=== PATIENT | female | born 1950 | race Caucasian/White ===

== ENCOUNTER 2018-09-28 10:48 | Inpatient (IN) | payer MEDICARE ==
[~2018-09-28] VITALS: Ht 162.6 cm; Wt 43.8 kg
--- OUTSIDE RECORDS SUMMARY | 2018-09-28 10:51 | XMS REPORT ---
Author Author [facility] Address Unknown Phone Unavailable Care Team Providers Care Head Sampler Name Role Phone Unavailable Unavailable Payers Payer Name Policy Type Policy Number Effective Date Expiration Date Problems This patient has no known problems. Allergies, Adverse Reactions, Alerts Allergy Name Allergy Type Status Severity Reaction(s) Onset Date Inactive Date Treating Clinician Comments No Known Allergies DA Active U 2018-01-01 00:00:00 Medications This patient has no known medications.
[2018-09-28] MEDS ORDERED: PANTOPRAZOLE 40 MG 10ML VIAL IV STA (11:03)
[2018-09-28] MEDS ORDERED: ALBUTEROL SULF 0.083% NEB SOLN 3 ML NEB NEB STA (11:03)
[2018-09-28] MEDS ORDERED: SODIUM CHLORIDE 0.9% 1000ML 1,000 ML IV STA (11:03)
[2018-09-28] MEDS ORDERED: IPRATROPIUM BROMIDE 0.02% 2.5 ML NEB NEB ONE (11:15)
--- NOTE | 2018-09-28 12:05 | Diagnostic Imaging Report ---
EXAMINATION: CHEST 2 VIEWS INDICATION: Cough. Shortness of breath. COMPARISON: None FINDINGS: TUBES and LINES: Right anterior chest port catheter. LUNGS: Lungs are well hyperinflated with chronic appearing change. Perihilar peribronchial hazy opacity could be due to bronchitis. There is no evidence of pneumonia or pulmonary edema. PLEURA: No pleural effusion or pneumothorax. HEART AND MEDIASTINUM: The cardiomediastinal silhouette is unremarkable. BONES AND SOFT TISSUES: No acute osseous lesion. Soft tissues are unremarkable. UPPER ABDOMEN: No free air under the diaphragm. IMPRESSION: Findings which could be due to bronchitis. Signed by: Dr. Demian Arnett M.D. on 09/28/2018 12:02 PM
[2018-09-28 12:47] LABS: BASOPHILS % 0.3 % (0.0-1.0); EOSINOPHILS % 0.3 % (0.0-6.0); HEMATOCRIT 42.4 % (34.2-44.1); HEMOGLOBIN 14.3 g/dL (12.0-16.0); LYMPHOCYTES # (AUTO) 0.7 (1.0-3.2); LYMPHOCYTES % 7.6 % (18.0-39.1); MEAN CORPUSCULAR HEMOGLOBIN 29.8 pg (28-32); MEAN CORPUSCULAR HGB CONC 33.7 g/dL (31-35); MEAN CORPUSCULAR VOLUME 88.3 fL (81-99); MONOCYTES # (AUTO) 0.7 (0.2-0.8); MONOCYTES % 8.1 % (4.4-11.3); NEUTROPHILS # (AUTO) 7.4 (2.1-6.9); NEUTROPHILS % 83.4 % (38.7-80.0); PLATELET COUNT 283 x10e3/uL (140-360); RED CELL DISTRIBUTION WIDTH 13.2 % (11.7-14.4)
[2018-09-28 12:47] LABS: BILIRUBIN,URINE 2+ (NEGATIVE); CLARITY,URINE SL CLOUDY (CLEAR); COLOR,URINE YELLOW (YELLOW); KETONES,URINE 1+ (NEGATIVE); LEUKOCYTE ESTERASE ,URINE TRACE (NEGATIVE); NITRITE,URINE NEGATIVE (NEGATIVE); PROTEIN,URINE DIPSTICK 2+ (NEGATIVE); URINE UROBILINOGEN 0.2 mg/dL (0.2 - 1)
[2018-09-28 12:57] LABS: PROTHROMBIN TIME 14.1 seconds (11.9-14.5)
[2018-09-28 12:58] LABS: PARTIAL THROMBOPLASTIN TIME 30.7 seconds (23.8-35.5)
[2018-09-28 13:12] LABS: ALBUMIN 3.9 g/dL (3.5-5.0); ALBUMIN/GLOBULIN RATIO 1.1 (0.8-2.0); ANION GAP 22.3 mmol/L (8-16); CALCIUM 10.6 mg/dL (8.4-10.2); CREATININE, SERUM 1.01 mg/dL (0.57-1.11); MAGNESIUM 2.6 MG/DL (1.3-2.1)
[2018-09-28 13:18] LABS: POTASSIUM 2.3 mmol/L (3.5-5.1)
[2018-09-28 13:18] LABS: WBC,URINE (MAN) >50 /HPF (0-5)
[2018-09-28 13:19] LABS: BACTERIA,URINE MANY /HPF; EPITHELIAL CELLS,URINE MODERATE /LPF
[2018-09-28] MEDS ORDERED: KCL 20MEQ/.9 SOD CHL 1,000 ML IV ONE (13:30)
[2018-09-28 13:45] LABS: CREATINE KINASE MB 1.9 ng/mL (0-5.0)
[2018-09-28] MEDS ORDERED: MORPHINE SULFATE 2 MG/ML SYR IV PRN (13:45)
[2018-09-28] MEDS: D5NS/KCL 20MEQ 1,000 ML IV SCH ×2 (13:45→23:59)
[2018-09-28] MEDS ORDERED: ONDANSETRON HCL INJ 2 MG/ML VIAL IV PRN (13:45)
[2018-09-28] MEDS ORDERED: POTASSIUM CHLORIDE 20MEQ/15ML UDC PO ONE (13:45)
[2018-09-28] MEDS ORDERED: MORPHINE SULFATE INJ 4 MG/ML INJ IV PRN (14:00)
[2018-09-28] MEDS: CEFTRIAXONE SOD 1 GM VIAL IV SCH ×2 (14:47→16:23)
[2018-09-28] MEDS ORDERED: PAMIDRONATE DISODIUM 90 MG in SODIUM CHLORIDE 0.9% 1000ML 1,000 ML IV ONE (15:00)
[2018-09-28 15:31] LABS: ANION GAP 18.4 mmol/L (8-16); BLOOD UREA NITROGEN 20 mg/dL (7-26); BUN/CREATININE RATIO 22 (6-25); CALCIUM 9.4 mg/dL (8.4-10.2); CARBON DIOXIDE 25 mmol/L (22-29); CHLORIDE 96 mmol/L (98-107); CREATININE, SERUM 0.92 mg/dL (0.57-1.11); EST GLOMERULAR FILTRATION RATE > 60 ML/MIN (60-); GLUCOSE 88 mg/dL (74-118); SODIUM 137 mmol/L (136-145)
[2018-09-28 15:38] LABS: POTASSIUM 2.4 mmol/L (3.5-5.1)
[2018-09-28] MEDS ORDERED: POTASSIUM CHLORIDE 20MEQ/100ML 100 ML IV ONE ×2 (16:30→18:30)
[2018-09-28 17:13] VITALS: BP 139/75
[2018-09-28 17:23] VITALS: BP 139/75
[2018-09-28 17:26] VITALS: BP 121/60
--- NOTE | 2018-09-28 19:47 | Consultation ---
DATE OF CONSULTATION: September 28, 2018 GASTROENTEROLOGY CONSULTATION REFERRING PHYSICIAN: Dr. Adilene Ortiz. REASON FOR CONSULTATION: Dysphagia. HISTORY OF PRESENT ILLNESS: Ms. Gleason is a very pleasant 67-year-old woman with history of head and neck cancer with recurrence. She has had as a barium swallow test in the past and was told she needed to be on pureed diet, which she did not particularly like. She was able to tolerate that until recently when she developed significant throat pain which keeps her from tolerating p.o. Over the weekend she had very little p.o. and was very weak and felt very dry and hydrated. She is noted to have significant hypokalemia as well as hypercalcemia here. She had a feeding tube several years ago but did not actually have to use it. She has had some coughing with p.o. intake with the fluids coming back up on her. She has no abdominal pain. She has had significant weight loss. PAST MEDICAL HISTORY: 1. Throat cancer. 2. COPD. MEDICATIONS AND ALLERGIES: REVIEWED. PLEASE SEE MAR, medication reconciliation form. SOCIAL HISTORY: Positive for tobacco. No alcohol, no illicit substances. FAMILY HISTORY: Reviewed, noncontributory. REVIEW OF SYSTEMS: Twelve-system review is positive for that mentioned in history of present illness, otherwise unremarkable. PHYSICAL EXAMINATION: GENERAL: She is thin, underweight, alert, oriented, no acute distress. HEENT: Pupils equal and reactive to light. NECK: Supple. LUNGS: She has rhonchi, right greater than left. CARDIAC: S1 and S2. ABDOMEN: Soft, nontender, nondistended. Normal bowel sounds. EXTREMITIES: No clubbing, cyanosis, edema. PSYCH: Calm, cooperative. NEUROLOGIC: Alert, oriented. HEME-ONC: No significant ecchymosis. The electronic health record was reviewed for laboratory and radiologic studies as well as history. ASSESSMENT: 1. Dysphagia. 2. Odynophagia. 3. Adult failure to thrive and significant to severe malnutrition. 4. Hypokalemia. 5. Hypercalcemia. 6. Dehydration. PLAN: At the current time she would benefit from a feeding tube placement, and she is interested in this. Procedure as well as risks, benefits, alternatives and the tube itself are discussed. We will have Nutrition consult for tube feed recommendations. Until she has a speech study that shows she is safe for p.o. intake, I would have her stay n.p.o. I did discuss with her that having a feeding tube does not keep you from eating if you are able to eat by mouth. We will plan on EGD tomorrow pending OR time and potassium. Thank you very much for asking me to see Ms. Gleason. Any questions or concerns, please do not hesitate to contact me. Will follow with you. Job#: [id number] EV
[2018-09-28 20:38] VITALS: BP 115/65
[2018-09-28] MEDS ORDERED: PAMIDRONATE DISODIUM 30 MG/VIAL IV SCH (21:00)
[2018-09-28 21:42] LABS: CREATINE KINASE MB 2.1 ng/mL (0-5.0)
[2018-09-28 22:45] VITALS: BP 115/65
[2018-09-29] VITALS (7 sets, daily range): BP systolic 117–157; BP diastolic 66–86
[2018-09-29] MEDS: D5NS/KCL 20MEQ 1,000 ML IV SCH ×4 (00:01→23:05)
[2018-09-29] MEDS: POTASSIUM CHLORIDE 20MEQ/100ML 100 ML IV ONE ×2 (01:26→05:44)
[2018-09-29] MEDS: CEFEPIME HCL 1 GM VIAL IV SCH ×3 (01:26→18:39)
[2018-09-29] MEDS: POTASSIUM CHLORIDE 20MEQ/100ML 100 ML IV SCH ×6 (01:26→23:35)
[2018-09-29 06:24] LABS: ALANINE AMINOTRANSFERASE 8 IU/L (0-55); ALBUMIN 2.8 g/dL (3.5-5.0); ALKALINE PHOSPHATASE 68 IU/L (40-150); ANION GAP 13.8 mmol/L (8-16); BLOOD UREA NITROGEN 12 mg/dL (7-26); BUN/CREATININE RATIO 16 (6-25); CALCIUM 8.3 mg/dL (8.4-10.2); CARBON DIOXIDE 23 mmol/L (22-29); CHLORIDE 101 mmol/L (98-107); CREATININE, SERUM 0.75 mg/dL (0.57-1.11); EST GLOMERULAR FILTRATION RATE > 60 ML/MIN (60-); GLUCOSE 145 mg/dL (74-118); SODIUM 135 mmol/L (136-145)
[2018-09-29 06:27] LABS: POTASSIUM 2.8 mmol/L (3.5-5.1)
[2018-09-29 06:48] LABS: CREATINE KINASE MB 2.2 ng/mL (0-5.0)
[2018-09-29 07:05] LABS: BASOPHILS % 0.3 % (0.0-1.0); EOSINOPHILS # (AUTO) 0.1 (0.0-0.4); EOSINOPHILS % 0.8 % (0.0-6.0); LYMPHOCYTES # (AUTO) 0.7 (1.0-3.2); LYMPHOCYTES % 9.8 % (18.0-39.1); MEAN CORPUSCULAR HEMOGLOBIN 30.1 pg (28-32); MEAN CORPUSCULAR HGB CONC 34.2 g/dL (31-35); MONOCYTES # (AUTO) 0.7 (0.2-0.8); MONOCYTES % 9.5 % (4.4-11.3); NEUTROPHILS % 79.1 % (38.7-80.0); PLATELET COUNT 217 x10e3/uL (140-360); RED BLOOD COUNT 3.75 x10e6/uL (3.6-5.1); RED CELL DISTRIBUTION WIDTH 13.5 % (11.7-14.4)
[2018-09-29 07:16] LABS: HEMOGLOBIN 11.3 g/dL (12.0-16.0)
[2018-09-29] MEDS ORDERED: POTASSIUM CHLORIDE 20MEQ/100ML 100 ML IV ONE ×4 (13:30→19:30)
[2018-09-29] MEDS ORDERED: CEFAZOLIN SOD 1 GM/D5W 50ML 50 ML IV ONE (14:00)
[2018-09-29 14:54] LABS: ANION GAP 15.3 mmol/L (8-16); POTASSIUM 3.3 mmol/L (3.5-5.1)
[2018-09-29] MEDS ORDERED: MAGNESIUM SULFATE 2GM/50ML 100 ML IV ONE (15:45)
[2018-09-29] MEDS ORDERED: SODIUM CHLORIDE 0.9% 500ML 500 ML ONE ×2 (16:01→19:32)
[2018-09-29] MEDS ORDERED: CEFAZOLIN SOD 1 GM VIAL ONE (17:04)
[2018-09-29] MEDS ORDERED: PROPOFOL IV EMULSION 10 MG/ML 20 ML VIAL ONE (17:04)
[2018-09-29] MEDS ORDERED: FENTANYL CITRATE/PF 100MCG/2 ML INJ ONE (17:06)
[2018-09-29] MEDS ORDERED: MIDAZOLAM HCL 2 MG/2 ML VIAL ONE (17:06)
[2018-09-29] MEDS ORDERED: MAGNESIUM SULF 1GRAM/DEXTROSE 100 ML IV ONE (17:30)
[2018-09-29] MEDS: BALSAM PERU/CASTOR OIL 60 GM OINT...G. TP SCH (18:29)
[2018-09-29] MEDS: MORPHINE SULFATE 2 MG/ML SYR IV PRN (19:45)
[2018-09-30] VITALS (8 sets, daily range): BP systolic 83–101; BP diastolic 51–62
[2018-09-30] MEDS: MORPHINE SULFATE 2 MG/ML SYR IV PRN (03:20)
[2018-09-30 05:34] LABS: ANION GAP 11.3 mmol/L (8-16); MAGNESIUM 2.3 MG/DL (1.3-2.1); POTASSIUM 3.3 mmol/L (3.5-5.1)
[2018-09-30] MEDS: D5NS/KCL 20MEQ 1,000 ML IV SCH ×3 (05:45→23:56)
[2018-09-30] MEDS: CEFEPIME HCL 1 GM VIAL IV SCH ×2 (05:59→17:01)
[2018-09-30] MEDS ORDERED: POTASSIUM CHLORIDE 20MEQ/100ML 200 ML IV ONE (09:00)
[2018-09-30] MEDS: BALSAM PERU/CASTOR OIL 60 GM OINT...G. TP SCH ×2 (09:38→17:00)
[2018-09-30] MEDS: ALBUTEROL SULF 0.083% NEB SOLN 3 ML NEB NEB PRN (13:00)
[2018-10-01] VITALS: BP 95/51
[2018-10-01] MEDS: CEFEPIME HCL 1 GM VIAL IV SCH ×2 (05:27→18:10)
[2018-10-01 05:31] VITALS: BP 95/51
[2018-10-01 05:38] LABS: MAGNESIUM 1.5 MG/DL (1.3-2.1)
[2018-10-01] MEDS: D5NS/KCL 20MEQ 1,000 ML IV SCH ×3 (05:45→21:45)
[2018-10-01 08:00] VITALS: BP 104/55
[2018-10-01] MEDS: BALSAM PERU/CASTOR OIL 60 GM OINT...G. TP SCH ×2 (09:00→17:00)
[2018-10-01] MEDS ORDERED: MAGNESIUM SULFATE 2GM/50ML 50 ML IV ONE (12:00)
[2018-10-01] MEDS ORDERED: POTASSIUM CHLORIDE 20MEQ/100ML 300 ML IV ONE (12:00)
[2018-10-01] MEDS ORDERED: MAGNESIUM SULFATE IV SCH (13:00)
[2018-10-01] MEDS ORDERED: SODIUM CHLORIDE 0.9% IV SCH (13:00)
[2018-10-01] MEDS ORDERED: POTASSIUM CHLORIDE 60 MEQ in SODIUM CHLORIDE 0.9% 1000ML 1,000 ML IV SCH (13:00)
[2018-10-01] MEDS: SPIRONOLACTONE 25 MG TAB PEG SCH (13:51)
[2018-10-01 16:00] VITALS: BP 97/55
[2018-10-01] MEDS: MORPHINE SULFATE 2 MG/ML SYR IV PRN (18:50)
[2018-10-01] MEDS: IPRATROPIUM BROMIDE 0.02% 2.5 ML NEB NEB PRN (19:50)
[2018-10-01] MEDS: ALBUTEROL SULF 0.083% NEB SOLN 3 ML NEB NEB PRN (19:50)
[2018-10-01 20:09] VITALS: BP 80/50
[2018-10-01 20:10] VITALS: BP 80/50
[2018-10-02] VITALS: BP 111/58
[2018-10-02 04:00] VITALS: BP 108/58
[2018-10-02] MEDS: CEFEPIME HCL 1 GM VIAL IV SCH ×2 (06:27→17:45)
[2018-10-02] MEDS: ALBUTEROL SULF 0.083% NEB SOLN 3 ML NEB NEB PRN (08:44)
[2018-10-02] MEDS: IPRATROPIUM BROMIDE 0.02% 2.5 ML NEB NEB PRN (08:45)
[2018-10-02] MEDS ORDERED: SPIRONOLACTONE 25 MG TAB PEG SCH (09:00)
[2018-10-02] MEDS: BALSAM PERU/CASTOR OIL 60 GM OINT...G. TP SCH ×2 (09:00→17:45)
[2018-10-02] MEDS: SPIRONOLACTONE 25 MG TAB PEG SCH (09:00)
[2018-10-02 09:02] VITALS: BP 103/65
[2018-10-02] MEDS: D5NS/KCL 20MEQ 1,000 ML IV SCH ×3 (10:14→21:45)
[2018-10-02 10:23] LABS: ANION GAP 12.3 mmol/L (8-16); POTASSIUM 3.3 mmol/L (3.5-5.1)
[2018-10-02 12:00] VITALS: BP 90/53
[2018-10-02 17:03] VITALS: BP 95/52
[2018-10-02 21:00] VITALS: BP 95/52
[2018-10-03 00:10] VITALS: BP 105/58
[2018-10-03] MEDS: D5NS/KCL 20MEQ 1,000 ML IV SCH ×4 (01:45→21:20)
[2018-10-03] MEDS: CEFEPIME HCL 1 GM VIAL IV SCH ×2 (05:20→18:39)
[2018-10-03 08:26] VITALS: BP 128/73
[2018-10-03] MEDS: SPIRONOLACTONE 25 MG TAB PEG SCH (09:00)
[2018-10-03] MEDS: BALSAM PERU/CASTOR OIL 60 GM OINT...G. TP SCH ×2 (09:00→17:06)
[2018-10-03 11:59] VITALS: BP 108/70
[2018-10-03 12:23] VITALS: BP 108/70
[2018-10-03] MEDS ORDERED: POTASSIUM CHLORIDE 20MEQ/15ML UDC PEG ONE (15:25)
[2018-10-03 15:43] VITALS: BP 105/61
[2018-10-03 20:00] VITALS: BP 107/65
[2018-10-04] VITALS (8 sets, daily range): BP systolic 103–117; BP diastolic 55–67
[2018-10-04] MEDS: METRONIDAZOLE 500MG/NS 100ML 100 ML IV SCH ×4 (01:10→21:49)
[2018-10-04] MEDS ORDERED: VANCOMYCIN 250MG/5ML ORAL SOLN PEG STA (01:11)
[2018-10-04] MEDS: MORPHINE SULFATE 2 MG/ML SYR IV PRN ×3 (01:25→23:28)
[2018-10-04] MEDS: D5NS/KCL 20MEQ 1,000 ML IV SCH ×3 (04:10→21:50)
[2018-10-04] MEDS: VANCOMYCIN 250MG/5ML ORAL SOLN PEG SCH ×3 (05:00→17:31)
[2018-10-04] MEDS: CEFEPIME HCL 1 GM VIAL IV SCH ×2 (05:00→17:31)
[2018-10-04] MEDS: BALSAM PERU/CASTOR OIL 60 GM OINT...G. TP SCH ×2 (09:39→15:59)
[2018-10-04] MEDS: SPIRONOLACTONE 25 MG TAB PEG SCH (11:00)
[2018-10-05] MEDS: VANCOMYCIN 250MG/5ML ORAL SOLN PEG SCH ×4 (00:08→15:55)
[2018-10-05 00:36] VITALS: BP 117/65
[2018-10-05 05:02] LABS: ANION GAP 11.9 mmol/L (8-16); BLOOD UREA NITROGEN < 5 mg/dL (7-26); CALCIUM 7.3 mg/dL (8.4-10.2); CARBON DIOXIDE 22 mmol/L (22-29); CHLORIDE 102 mmol/L (98-107); EST GLOMERULAR FILTRATION RATE > 60 ML/MIN (60-); GLUCOSE 109 mg/dL (74-118); POTASSIUM 3.9 mmol/L (3.5-5.1); SODIUM 132 mmol/L (136-145)
[2018-10-05 05:20] LABS: BUN/CREATININE RATIO 10 (6-25)
[2018-10-05] MEDS: D5NS/KCL 20MEQ 1,000 ML IV SCH ×2 (05:24→13:45)
[2018-10-05 05:38] VITALS: BP 110/58
[2018-10-05] MEDS: METRONIDAZOLE 500MG/NS 100ML 100 ML IV SCH ×2 (05:46→14:00)
[2018-10-05] MEDS: CEFEPIME HCL 1 GM VIAL IV SCH (05:46)
[2018-10-05 08:07] VITALS: BP 106/55
[2018-10-05 08:15] VITALS: BP 106/55
[2018-10-05] MEDS: SPIRONOLACTONE 25 MG TAB PEG SCH (08:25)
[2018-10-05] MEDS: BALSAM PERU/CASTOR OIL 60 GM OINT...G. TP SCH ×2 (08:25→15:55)
[2018-10-05] MEDS ORDERED: ALDACTONE25 MG PO (10:31)
[2018-10-05] MEDS ORDERED: FLAGYL250 MG PO (10:31)
[2018-10-05] MEDS ORDERED: HEPARIN 500 UNITS/5ML MDV INJ NR (11:00)
[2018-10-05 11:27] VITALS: BP 105/86
[2018-10-05 15:56] VITALS: BP 130/71
--- NOTE | 2018-11-29 10:09 | Discharge Summary ---
HISTORY AND HOSPITAL COURSE: Tonie Gleason is a 67-year-old white female who had presented with extreme weakness. For detailed history and physical, please review my dictation dated 09/28/2018. On admission, her potassium was 2.4, calcium was high at 10.8, subsequently 40 mEq of potassium was given IV. The potassium on the following day was 3.3. The patient also had magnesium supplements. Gastrotomy was suggested because of extreme cachexia. Consultation with Dr. Tiwari, chief green officer, was obtained. The patient's potassium was still 2.3 on 09/30/2018 with magnesium of 2.3 and potassium supplement of 40 mEq, was given again. On 10/01/2018, 7 g of magnesium as well as 160 mEq of potassium was supplemented, but the potassium being still 3.0. The patient's potassium again on 10/02/2018 was 3.0. Aldactone was started. The patient remained on cefepime, Morphine, and albuterol. The patient continued to have diarrhea, subsequently was found to have Clostridia colitis. The patient was started on p.o. vancomycin as well as p.o. metronidazole. The potassium was 3.3 with Aldactone 50 mg. On 10/04/2018, the patient's potassium eventually was 3.9. On 10/05/2018, the patient insisted that she wants to go home, subsequently discharged 1. On albuterol inhalations. 2. Flagyl 500 mg every 8 hours for the next 10 days. 3. Aldactone 50 mg a day. 4. Vancomycin 250 mg q.6 hours for 10 days. I certainly hope that the patient will be compliant enough to come back to the office for systemic chemotherapy, I seriously doubt so; however, I will be in touch with the patient and the . Prognosis remains extremely poor. FINAL DIAGNOSES 1. Recurrent cancer of the head and neck. 2. Bronchitis. 3. Clostridia difficile colitis. 4. Hypokalemia. 5. Hypercalcemia. 6. Hypomagnesemia. 7. Cachexia. Prognosis remains poor. 8. Noncompliance. Job#: [id number] NINFA
--- NOTE | 2018-11-29 11:22 | History and Physical ---
HISTORY OF PRESENT ILLNESS: Tonie Gleason is a 67-year-old white female who presented with extreme weakness, subsequently was found to have potassium of 2.4, subsequently admitted for further evaluation and treatment. 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 The patient had a decent remission for approximately 2 years. The patient however continued to smoke, subsequently has relapsed. SOCIAL HISTORY: History of excessive smoking. FAMILY HISTORY: Noncontributory. ALLERGIES: REPORTED NONE. MEDICATIONS: At this time 1. Albuterol. 2. Potassium chloride. 3. Ceftriaxone. 4. Morphine. REVIEW OF SYSTEMS: HEENT: History of cancer of the head and neck. CARDIAC: Normal. RESPIRATORY: Severe COPD. GI: Normal except for the gastrotomy tube which she had in the past. : Normal. MUSCULOSKELETAL: Normal. SKIN AND BREASTS: Normal. NEUROENDOCRINE: Essentially normal. PHYSICAL EXAMINATION: GENERAL: A very cachectic female 5 feet 4 inches tall, weighs only 71 pounds. HEENT: Oral cavity reveals a right posterior vallecular mass approximately 2 cm. HEART: Within normal limits. LUNGS: Coarse crepitations. ABDOMEN: Soft. RECTAL: Deferred. VAGINAL: Deferred. CENTRAL NERVOUS SYSTEM: Essentially normal. EXTREMITIES: Essentially normal. Lab shows hemoglobin of 14.3, hematocrit of 42.4, white count of 8800, platelets of 283,000. BUN 20, creatinine 0.9, glucose 88, sodium 137, potassium 2.4, chloride 96, CO2 25, bilirubin 1.2, SGOT 20, SGPT 9, alkaline phosphatase 89. IMPRESSION: 1. Recurrent head and neck cancer. 2. Electrolyte imbalance. 3. Hypercalcemia. 4. Hypokalemia. 5. Urinary tract infection. 6. Bronchitis. PLAN: Is to have potassium supplement. The patient will also be given Aredia. Gastrotomy cultures. Aggressive antibiotic therapy. Prognosis of this patient remains poor as she has not only been noncompliant but also continues to smoke. I had a very prolonged discussion with the patient's and the son who had multiple questions which were answered. Natural history of cancer of the head and neck which relapses was discussed. Survival less than 1 year, if she continues to have systemic chemotherapy, I seriously doubt that she will have any chemotherapy. Job#: [id number] MARTY
== END 2018-10-05 16:11 | disposition home or self-care (01) | DRG 391 ==
LOC: ER 10:48 → ERHOLD 13:49 → MED/SURG2 16:46
PROVIDERS: ADMIT Internal Medicine Medical Oncology; ATTEND Internal Medicine Medical Oncology
PROC: 3E0G76Z Introduction of Nutritional Substance into Upper GI, Via Natural or Artificial Opening (ICD-10-PCS; 2018-09-29)
PROC: 0DH63UZ Insertion of Feeding Device into Stomach, Percutaneous Approach (ICD-10-PCS; principal; 2018-09-29 14:44)
DX: R13.12 Dysphagia, oropharyngeal phase (principal); E43 Unspecified severe protein-calorie malnutrition; Z68.1 Body mass index [BMI] 19.9 or less, adult; A04.72 Enterocolitis due to Clostridium difficile, not specified as recurrent; N39.0 Urinary tract infection, site not specified; R62.7 Adult failure to thrive; C32.9 Malignant neoplasm of larynx, unspecified; E87.6 Hypokalemia; E83.52 Hypercalcemia; E86.0 Dehydration; L89.151 Pressure ulcer of sacral region, stage 1; J44.9 Chronic obstructive pulmonary disease, unspecified; F17.200 Nicotine dependence, unspecified, uncomplicated; Z92.21 Personal history of antineoplastic chemotherapy; Z92.3 Personal history of irradiation
CPT/HCPCS: 36415; 43246; 71046; 80048; 80051; 80053; 81001; 82550; 82553; 83605; 83735; 84132; 84484; 85025; 85610; 85730; 87040; 87070; 87086; 87186; 87205; 87493; 93005; 94640; 96361; 99284; J0690; J0692; J0696; J2250; J2270; J2405; J2430; J3475; J3480; J7030; J7040